=== PATIENT | female | born 1995 | race Caucasian/White ===

== ENCOUNTER → 2020-06-27 10:16 | Outpatient (CLI) | payer OTHER, SELFPAY ==
[2020-06-27 17:32] VITALS: BMI 27.1
== END ==
PROVIDERS: Referring Provider Physician Assistant; Visit Provider Physician Assistant
DX: Z20.828 Contact with and (suspected) exposure to other viral communicable diseases (principal)
CPT/HCPCS: 87635; U0003

== ENCOUNTER → 2022-05-03 | Outpatient (CLI) | payer OTHER, SELFPAY ==
[2022-05-03 19:36] LABS: Amphetamine Urine VISTA NEGATIVE (<1000 ng/mL); Barbiturate Urine VISTA NEGATIVE (< 200 ng/mL); Benzodiazepine Urine VISTA NEGATIVE (< 200 ng/mL); Cocaine Urine VISTA NEGATIVE (< 300 ng/mL); Ecstacy Urine VISTA NEGATIVE (< 500 ng/mL); Methadone Urine VISTA NEGATIVE (< 300 ng/mL); PCP Urine VISTA NEGATIVE (< 25 ng/mL); THC Urine VISTA NEGATIVE (< 50 ng/mL); Vista UDS pH Range 5
[2022-05-07 06:06] LABS: Chlamydia By Nucleic Acid AMP Negative (Negative)
[2022-05-07 14:32] LABS: Gonococcus By Nucleic Acid AMP Negative (Negative)
[2022-05-12 14:35] LABS: HPV Reflexed? NOT INDICATED
== END | disposition home or self-care (01) ==
LOC: LABSPEC 16:52
PROVIDERS: PCP Family Medicine; Visit Provider Obstetrics & Gynecology
DX: Z34.00 Encounter for supervision of normal first pregnancy, unspecified trimester (principal)
CPT/HCPCS: 80307; 87086; 87491; 87591; 88175; G0145

== ENCOUNTER → 2022-05-07 | Outpatient (CLI) | payer OTHER, SELFPAY ==
[2022-05-07 11:20] LABS: Absolute Lymphocyte Count 1.28 X10^3/uL (0.83-4.51); Absolute Neutrophil Count 5.9 X10^3/uL (2.0-7.7); Basophil# 0.02 X10^3/uL; Basophil% 0.3 % (0-1); Eosinophil# 0.05 X10^3/uL; Eosinophils% 0.6 % (0-5); Hematocrit 33.5 % (37-47); Hemoglobin 11.7 g/dL (12.0-15.0); Lymphocyte # 1.28 X10^3/ul (0.83-4.51); Lymphocyte % 16.5 % (19-41); Mean Corp Hgb Conc 34.9 g/dL (32-36); Mean Corpuscular Hgb 29.2 pg (27.0-32.0); Mean Corpuscular Volume 83.5 fL (81-99); Mean Platelet Vol. 10.4 fl (6.2-12.0); Monocyte# 0.52 X10^3/uL; Monocyte% 6.7 % (0-10); NRBC Flagged by Analyzer 0 % (0-5); Neutrophil # 5.86 X10^3/uL (2.7-7.7); Neutrophil % 75.5 % (47-70); Platelet Count 221 K/mm3 (150-450); RBC Distribution Width CV 11.7 % (11.6-14.6); RBC Distribution Width SD 35.5 fl (35.1-43.9); Red Blood Count 4.01 M/mm3 (4.2-5.4); White Blood Count 7.8 K/mm3 (4.4-11.0)
[2022-05-07 11:39] LABS: NATERA MAILED SPECIMEN
[2022-05-07 12:29] LABS: HIV - WCH Non-Reactive (Nonreactive); Hepatitis B Surface Antigen Non-Reactive (Nonreactive); Hepatitis C Antibody Non-Reactive (Nonreactive); Rubella IgG Reactive (Nonreactive); Syphilis Antibodies Non-reactive
== END | disposition home or self-care (01) ==
PROVIDERS: PCP Family Medicine; Referring Provider Obstetrics & Gynecology; Visit Provider Obstetrics & Gynecology
DX: Z34.81 Encounter for supervision of other normal pregnancy, first trimester (principal); Z31.430 Encounter of female for testing for genetic disease carrier status for procreative management
CPT/HCPCS: 85025; 86703; 86762; 86780; 86803; 86850; 86900; 86901; 87340

== ENCOUNTER → 2022-07-13 | Outpatient (CLI) | payer OTHER, SELFPAY ==
--- NOTE | 2022-07-13 13:31 | US_ITS ---
STUDY: SECOND AND THIRD TRIMESTER OBSTETRICAL ULTRASOUND REASON FOR EXAM: Female, 26 years old anatomy LMP: 03/01/2022. TECHNIQUE: Transabdominal and Transvaginal TECHNICAL QUALITY: Adequate. PRIOR ULTRASOUND: None. FINDINGS: There is a single intrauterine fetus. The fetus is in a breech presentation. There is demonstrated cardiac activity with a heart rate of 143 bpm. There is a normal amniotic fluid volume. The largest amniotic fluid pocket measures 4.8 cm x 3.3 cm. The amniotic fluid index (HADLEY) is within normal limits. The placenta is anterior in location and is not low lying. There are Grade 0 placental changes. The cervix measures 6 cm in length. The bilateral adnexal regions are normal. BIOMETRY: BPD: 4.06 cm: 18 weeks, 2 days HC: 15.94 cm: 18 weeks, 5 days AC: 14.14 cm: 19 weeks, 4 days FL: 2.9 cm: 18 weeks, 6 days CI: 71% FL/BPD: 72% FL/HC: FL/AC: 21% HC/AC: 1.13 age by current US: 18 weeks, 6 days. LUX by current US: 12/08/2021. Estimated weight: 276 grams, +/- 41 grams, 44 %. Age by LMP: 19 weeks, 1 days. LUX by LMP: 12/06/2022. ANATOMY: Gender: Cranium: Normal lateral ventricles. A choroid plexus cyst is seen measuring 5 mm x 6 mm x 5 mm. Normal cerebellum. Normal cisterna magna. Normal face, nose and lips. Chest: Normal 4-chamber heart. Abdomen/Pelvis: Normal diaphragm. Normal stomach. Normal abdominal wall. Normal cord insertion. Normal 3 vessel cord. Left renal pelvis fullness measuring 3 mm. Normal bladder. Spine: Normal cervical spine. Normal thoracic spine. Normal lumbar spine. Normal sacrum. Extremities: Normal bilateral upper extremities. Normal bilateral lower extremities. IMPRESSION: Single live intrauterine gestation with a mean gestational age of 18 weeks and 6 days. Small choroid plexus cyst. Fullness of the left renal pelvis measuring 3 mm. Electronically Signed: Figueroa Tay MD at 15:25 EST , STUDY: FIRST TRIMESTER OBSTETRICAL ULTRASOUND REASON FOR EXAM: Female, 26 years old . Cervical measurement. LMP: 03/01/2022 TECHNIQUE: Transvaginal TECHNICAL QUALITY: Adequate. PRIOR ULTRASOUND: None. FINDINGS: Cervical length measures 6 cm. US/OB Anatomy Scan IMPRESSION: Cervical length measures 6 cm. Electronically Signed: Figueroa Tay MD at 15:25 EST ,
== END | disposition home or self-care (01) ==
PROVIDERS: PCP Family Medicine; Visit Provider Obstetrics & Gynecology
DX: Z34.00 Encounter for supervision of normal first pregnancy, unspecified trimester (principal); Z3A.18 18 weeks gestation of pregnancy; R93.5 Abnormal findings on diagnostic imaging of other abdominal regions, including retroperitoneum
CPT/HCPCS: 76805; 76817

== ENCOUNTER → 2022-09-14 | Outpatient (CLI) | payer OTHER, SELFPAY ==
[2022-09-14 15:57] LABS: Absolute Lymphocyte Count 1.31 X10^3/uL (0.83-4.51); Absolute Neutrophil Count 8.3 X10^3/uL (2.0-7.7); Basophil# 0.02 X10^3/uL; Basophil% 0.2 % (0-1); Eosinophil# 0.11 X10^3/uL; Hematocrit 30.8 % (37-47); Hemoglobin 10.5 g/dL (12.0-15.0); Lymphocyte # 1.31 X10^3/ul (0.83-4.51); Lymphocyte % 12.4 % (19-41); Mean Corp Hgb Conc 34.1 g/dL (32-36); Mean Corpuscular Hgb 29.9 pg (27.0-32.0); Mean Corpuscular Volume 87.7 fL (81-99); Mean Platelet Vol. 9.8 fl (6.2-12.0); Monocyte# 0.78 X10^3/uL; Monocyte% 7.4 % (0-10); NRBC Flagged by Analyzer 0 % (0-5); Neutrophil # 8.33 X10^3/uL (2.7-7.7); Neutrophil % 78.5 % (47-70); Platelet Count 199 K/mm3 (150-450); RBC Distribution Width CV 12.6 % (11.6-14.6); Red Blood Count 3.51 M/mm3 (4.2-5.4); White Blood Count 10.6 K/mm3 (4.4-11.0)
[2022-09-14 16:14] LABS: Glucose Challenge Gest 1H 50g 113 mg/dL (70-140)
[2022-09-14 16:49] LABS: HIV - WCH Non-Reactive (Nonreactive); Syphilis Antibodies Non-reactive
== END | disposition home or self-care (01) ==
LOC: LAB 15:09
PROVIDERS: PCP Family Medicine; Referring Provider Obstetrics & Gynecology; Visit Provider Obstetrics & Gynecology
DX: Z34.90 Encounter for supervision of normal pregnancy, unspecified, unspecified trimester (principal)
CPT/HCPCS: 36415; 82950; 85025; 86703; 86780

== ENCOUNTER → 2022-10-10 | Outpatient (CLI) | payer OTHER, SELFPAY ==
[2022-10-10 15:38] LABS: Absolute Lymphocyte Count 1.58 X10^3/uL (0.83-4.51); Absolute Neutrophil Count 9.4 X10^3/uL (2.0-7.7); Basophil# 0.03 X10^3/uL; Basophil% 0.3 % (0-1); Eosinophil# 0.12 X10^3/uL; Hematocrit 31.6 % (37-47); Hemoglobin 10.8 g/dL (12.0-15.0); Lymphocyte # 1.58 X10^3/ul (0.83-4.51); Lymphocyte % 13.2 % (19-41); Mean Corp Hgb Conc 34.2 g/dL (32-36); Mean Corpuscular Hgb 30.6 pg (27.0-32.0); Mean Corpuscular Volume 89.5 fL (81-99); Mean Platelet Vol. 9.8 fl (6.2-12.0); Monocyte# 0.81 X10^3/uL; Monocyte% 6.8 % (0-10); NRBC Flagged by Analyzer 0 % (0-5); Neutrophil # 9.38 X10^3/uL (2.7-7.7); Neutrophil % 78.1 % (47-70); Platelet Count 204 K/mm3 (150-450); RBC Distribution Width CV 12.9 % (11.6-14.6); RBC Distribution Width SD 41.9 fl (35.1-43.9); Red Blood Count 3.53 M/mm3 (4.2-5.4)
== END | disposition home or self-care (01) ==
LOC: LAB 15:06
PROVIDERS: PCP Family Medicine; Visit Provider Obstetrics & Gynecology
DX: O99.013 Anemia complicating pregnancy, third trimester (principal); Z3A.00 Weeks of gestation of pregnancy not specified
CPT/HCPCS: 36415; 85025

== ENCOUNTER → 2022-10-11 | Outpatient (CLI) | payer OTHER, SELFPAY ==
--- NOTE | 2022-10-11 14:17 | US_ITS ---
STUDY: SECOND AND THIRD TRIMESTER OBSTETRICAL ULTRASOUND - LIMITED REASON FOR EXAM: Female, 27 years old routine survey, growth check LMP: 03/01/2022 PRIOR ULTRASOUND: 07/13/2022 TECHNIQUE: Transabdominal TECHNICAL QUALITY: Adequate. FINDINGS: There is a single intrauterine fetus. The fetus is in a cephalic presentation. There is demonstrated cardiac activity with a heart rate of 137 bpm. There is a normal amniotic fluid volume. The largest amniotic fluid pocket measures 5.3 cm. The amniotic fluid index (HADLEY) is 15.5 cm. The placenta is anterior in location and is not low lying. There are Grade 2 placental changes. The cervix measures 3.2 cm in length. BIOMETRY: BPD: 8.1 cm: 32 weeks, 5 days HC: 29.6 cm: 32 weeks, 5 days AC: 27.5 cm: 31 weeks, 4 days FL: 6.3 cm: 32 weeks, 3 days age by prior US: 18 weeks, 6 days. LUX by prior US: 12/08/2021. age by current US: 32 weeks, 1 days. LUX by current US: 12/05/2022. Estimated weight: 1911 grams, +/- 287 grams, 44 percentile. Parts Salvager notes a nuchal cord, a previously noted choroid plexus cyst is no longer identified. Fullness of the left renal pelvis also no longer identified. US/OB Limited With Biometrics IMPRESSION: Single live intrauterine at 32 weeks, 1 day by current ultrasound with LUX of 12/05/2022. Heart rate at 137 bpm. Normal growth is noted since the previous study. A nuchal cord is present. Previously noted choroid plexus cyst, and left renal pelvis fullness no longer identified. Electronically Signed: Valdez Rosales MD at 8:01 EDT ,
== END | disposition home or self-care (01) ==
LOC: US 14:15
PROVIDERS: PCP Family Medicine; Visit Provider Obstetrics & Gynecology
DX: U07.1 COVID-19 (principal)
CPT/HCPCS: 76816

== ENCOUNTER → 2022-11-09 | Outpatient (CLI) | payer OTHER, SELFPAY ==
--- NOTE | 2022-11-09 15:29 | US_ITS ---
STUDY: SECOND AND THIRD TRIMESTER OBSTETRICAL ULTRASOUND - LIMITED REASON FOR EXAM: Female, 27 years old growth -- 36 Weeks LMP: PRIOR ULTRASOUND: None. TECHNIQUE: Transabdominal TECHNICAL QUALITY: Adequate. FINDINGS: There is a single intrauterine fetus. The fetus is in a cephalic presentation. There is demonstrated cardiac activity with a heart rate of 137 bpm. There is a normal amniotic fluid volume. The largest amniotic fluid pocket measures 5.39 cm. The amniotic fluid index (HADLEY) is 16.9 cm. The placenta is anterior There are Grade 0 placental changes. The cervix measures cm in length. BIOMETRY: BPD: 8.6 cm: 34 weeks, 6 days HC: 32.84 cm: 37 weeks, 2 days AC: 30.94 cm: 34 weeks, 6 days FL: 6.83 cm: 35 weeks, 0 days Age by LMP: 36 weeks, 2 days. LUX by LMP: December 05, 2022. age by current US: 35 weeks, 4 days. LUX by current US: December 10, 2022. Estimated weight: 2578 grams, +/- grams, 21.8 percentile. US/OB Limited With Biometrics IMPRESSION: Viable intrauterine gestation approximately 35-36 weeks gestational age No significant abnormalities Electronically Signed: Bishop Yip MD at 17:11 EDT ,
== END | disposition home or self-care (01) ==
LOC: US 15:29
PROVIDERS: PCP Family Medicine; Referring Provider Obstetrics & Gynecology; Visit Provider Obstetrics & Gynecology
DX: O98.513 Other viral diseases complicating pregnancy, third trimester (principal); U07.1 COVID-19; Z3A.36 36 weeks gestation of pregnancy
CPT/HCPCS: 76816

== ENCOUNTER → 2022-11-13 | Outpatient (CLI) | payer OTHER, SELFPAY | END | disposition home or self-care (01) | LOC: LABSPEC 17:00 | PROVIDERS: PCP Family Medicine; Referring Provider Obstetrics & Gynecology; Visit Provider Obstetrics & Gynecology | DX: Z34.00 Encounter for supervision of normal first pregnancy, unspecified trimester (principal) | CPT/HCPCS: 87081 ==

== ENCOUNTER 2022-12-02 23:58 | Inpatient (IN) | payer OTHER, SELFPAY ==
[2022-12-02 23:17] VITALS: BMI 39.2
[2022-12-02 23:22] VITALS: BP 143/82; PULSE 91; PULSE 95; TEMP 37.2; O2SAT 97
[2022-12-02 23:56] LABS: ROM Internal Control Test YES-OK TO RESULT pt. (Internal QC)
[2022-12-02 23:58] LABS: ROM Patient Test POSITIVE (Negative)
[2022-12-03] VITALS (60 sets, daily range): BP systolic 105–134; BP diastolic 55–80; PULSE 74–210; TEMP 36.2–37.6; O2SAT 97–100
[2022-12-03 00:42] LABS: Absolute Lymphocyte Count 1.74 X10^3/uL (0.83-4.51); Absolute Neutrophil Count 8.4 X10^3/uL (2.0-7.7); Basophil# 0.04 X10^3/uL; Basophil% 0.4 % (0-1); Eosinophils% 0.9 % (0-5); Hematocrit 33.4 % (37-47); Hemoglobin 11.4 g/dL (12.0-15.0); Lymphocyte # 1.74 X10^3/ul (0.83-4.51); Lymphocyte % 15.5 % (19-41); Mean Corp Hgb Conc 34.1 g/dL (32-36); Mean Corpuscular Hgb 29.5 pg (27.0-32.0); Mean Corpuscular Volume 86.5 fL (81-99); Mean Platelet Vol. 10.9 fl (6.2-12.0); Monocyte# 0.85 X10^3/uL; Monocyte% 7.6 % (0-10); NRBC Flagged by Analyzer 0 % (0-5); Platelet Count 209 K/mm3 (150-450); RBC Distribution Width CV 13.1 % (11.6-14.6); Red Blood Count 3.86 M/mm3 (4.2-5.4); White Blood Count 11.2 K/mm3 (4.4-11.0)
[2022-12-03 01:43] LABS: Syphilis Antibodies Non-reactive
[2022-12-03] MEDS: LACTATED RINGERS 500 ML 999 ML IV (04:07)
[2022-12-03] MEDS: Lactated Ringers 1,000 ML 200 ML IV ×4 (04:39→21:19)
[2022-12-03] MEDS: fentaNYL-bupivacaine (epidural) 100 ML BAG EPIDURAL ×4 (05:11→19:09)
--- NOTE | 2022-12-03 08:45 | HP.PCM.OB_ITS ---
HPI - General General Date of Admission: 12/02/22 HPI Narrative AASHISH NORMAN, is a 27 F who presents at 39+4 with LOF at 10pm on 12/02/2022. positive ROM. good fm. no vb. increasing ctx strength and frequency. course complicated by Covid. growth scans stable. 2578g(21.8%) at 36 weeks. Maternal Data Information LUX Calculator Estimated Delivery Date Method Current WG Current Estimate 12/06/22 LMP (Certain) 39w 4d Other Estimates 12/04/22 Ultrasound #1 39w 6d PFSH PFS Medical History Lab test positive for detection of COVID-19 virus Home Medications multivitamin no.47-iron fum 27 mg-folate no.1 1 mg-dha 300 mg capsule (PNV-DHA) 1 cap PO DAILY 04/27/22 [History Last Taken 11/30/22] aspirin 81 mg chewable tablet 81 mg PO DAILY covid in 06/27/22 [History Last Taken 12/01/22] ferrous sulfate 325 mg (65 mg iron) tablet (Iron (ferrous sulfate)) 325 mg PO DAILY anemia 12/02/22 [History Last Taken 11/30/22] Allergy/AdvReac Type Severity Reaction Status Date / Time No Known Allergies Allergy Verified 11/28/22 16:19 Social History adopted: No household members: significant other current occupational status: employed 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 [employer] current occupational exposures/hazards: No pets and animals: Yes pets and animals: dog(s) history of recent travel: No sexually active: Yes Smoking Status: Never smoker alcohol intake: never substance use type: does not use well-balanced diet: about half the time caffeine: No eating out: 1-3 times/week during the past year weight has: remained stable what type of physical activity do you participate in: none kathleen/jewish: None seatbelt use: always do you feel safe at home: Yes additional social history: Boyfriend- [employer] History 1 Elective abortions Hx Para 0 Spontaneous abortions Hx # Term Pregnancies Ectopic pregnancies Hx # Pregnancies Multiple births # of living children Visit Details Expected Delivery Route/Plan Labor Preferences- CB/BF classes: obtaining labor support person: Nba labor intervention preferences: pain management options preferred: epidural cut cord/dad catch: [] : wants PP control planned: [] discussed possible routes of delivery and associated risks: [] special requests: [] Plans Covid status: discussed. Flu vaccine: discussed Tdap vaccine: obtained Rhogam: [] LARC form signed: completed movement and labor precautions reviewed. Problem list reviewed and updated with the most current plan of care details and appropriate orders placed. Relevant counseling for the gestational age provided. Continue routine care and follow up unless otherwise noted in visit notes/problem list details OB Flowsheet Initial Weight: Not Recorded Date -?-?-?-?-?-?-?-?-?-?-?-?- EGA Weight BP Urine Prot -?-?-?-?-?-?-?-?-?-?-?-?- Glucose FHR FuHt Pres Dilation -?-?-?-?-?-?-?-?-?-?-?-?- Effaced St Visit Note 05/03/22 -?-?-?-?-?-?-?-?-?-?-?-?- 9w 0d 173 lb 2 oz 112/76 -?-?-?-?-?-?-?-?-?-?-?-?- 179 -?-?-?-?-?-?-?-?-?-?-?-?- JV- CRL is consi stent with LMP. 05/30/22 -?-?-?-?-?-?-?-?-?-?-?-?- 12w 6d 170 lb 119/79 Negative -?-?-?-?-?-?-?-?-?-?-?-?- Negative 159 -?-?-?-?-?-?-?-?-?-?-?-?- JV- still having lots of morning sickness. will try phenergan. zofran not working. JV- still having lots of mor kenisha sickness. will try phenergan. zofran not working. Pt also noted at end of her visit today that her fiancee is home sick with COVID and did not wear a mask to the office. She also has with her 2 other family members who have also been exposed to COVID. 06/27/22 -?-?-?-?-?-?-?-?-?-?-?-?- 16w 6d 172 lb 2 oz 115/77 Nega tive -?-?-?-?-?-?-?-?-?-?-?-?- Negative 145 -?-?-?-?-?-?-?-?-?-?-?-?- LC- nausea is im proving with medications. anatomy scan ordered. on ASA for covid. 07/19/22 -?-?-?-?-?-?-?-?-?-?-?-?- 20w 0d 178 lb 2 oz 110/68 Nega tive -?-?-?-?-?-?-?-?-?-?-?-?- Negative 148 -?-?-?-?-?-?-?-?-?-?-?-?- MH-No VB. Revie wed anatomy us-noted choroid plexus cyst, otherwise normal US. LR NIPT. Reasured. Flu vaccine given 08/17/22 -?-?-?-?-?-?-?-?-?-?-?-?- 24w 1d 189 lb 117/83 Negative -?-?-?-?-?-?-?-?-?-?-?-?- Negative 140 24 -?-?-?-?-?-?-?-?-?-?-?-?- SM- no vb jeffery medrano discussed anatomy further 09/14/22 -?-?-?-?-?-?-?-?-?-?-?-?- 28w 1d 195 lb 2 oz 104/71 Nega tive -?-?-?-?-?-?-?-?-?-?-?-?- Negative 150 27 -?-?-?-?-?-?-?-?-?-?-?--?- SM- no vb lof go od fm no regular ctx 10/10/22 -?-?-?-?-?-?-?-?-?-?-?-?- 31w 6d 206 lb 4 oz 106/69 Nega tive -?-?-?-?-?-?-?-?-?-?-?-?- Negative 156 31 -?-?-?-?-?-?-?-?-?-?-?-?- JV- JV- no lof, vaginal bleeding , or dec fm. tdap and larc today. rpt cbc today shows hg 10.8 (up slightly) continue iron 10/22/22 -?-?-?-?-?-?-?-?-?-?-?-?- 33w 4d 210 lb 2 oz 112/74 112/74 Negative -?-?-?-?-?-?-?-?-?-?-?-?- Negative 154 33 -?-?-?-?-?-?-?-?-?-?-?-?- LC- no vb/lof/ct x. good fm. normal growth. 11/06/22 -?-?-?-?-?-?-?-?-?-?-?-?- 35w 5d 211 lb 4 oz 121/84 Nega tive -?-?-?-?-?-?-?-?-?-?-?-?- Negative 150 36 -?-?-?-?-?-?-?-?-?-?-?-?- KW- no vb/lof/ct x. + FM GBS next visit. no concerns KW- no vb/lof/ctx. + FM GBS next visit. 36 week US scheduled for 11/09. no concerns 11/13/22 -?-?-?-?-?-?-?-?-?-?-?-?- 36w 5d 215 lb 8 oz 129/86 Nega tive -?-?-?-?-?-?-?-?-?-?-?-?- Negative 150 37 -?-?-?-?-?-?--?-?-?-?-?-?- SM- no vb lof go od fm no regular ctx gbs today 11/20/22 -?-?-?-?-?-?-?-?-?-?-?-?- 37w 5d 220 lb 114/79 Negative -?-?-?-?-?-?-?-?-?-?-?-?- Negative 140 38 Cephalic 2 -?-?-?-?-?-?-?-?-?-?-?-?- 50 -3 KW-+FM, no lof/vb. ctx noted-not able to time. no concerns 11/28/22 -?-?-?-?-?-?-?-?-?-?-?--?- 38w 6d 221 lb 4 oz 130/78 Nega tive -?-?-?-?-?-?-?-?-?-?-?-?- Negative 145 39 Cephalic 1 -?-?-?-?-?-?-?-?-?-?-?-?- 30 -3 JV- no lof , vaginal bleeding, or dec fm. labor precautions reviewed. NST FHR Rate Baby A Baseline: 140 Variability:: Moderate Accelerations:: 15 x 15 Decelerations:: None NST Reactive:: Yes FHR Category:: Category I Uterine Activity:: q2-7 minutes ROS Cardiovascular Cardiovascular: Denies abdominal pain, chest pain, diaphoresis or dyspnea Respiratory/Chest Respiratory/Chest: Denies change in mental status, chest congestion, chest tightness, cough, shortness of breath at rest, shortness of breath with exertion, breast mass, breast pain, breast skin changes, breast swelling, change in breast shape or nipple discharge Genitourinary Genitourinary: Reports change in urinary stream Musculoskeletal Musculoskeletal: Reports none Integumentary Integumentary: Reports none Neurologic Neurologic: Reports none Psychiatric Psychiatric: Reports none Endocrine Endocrinology: Reports none Hematologic/Lymphatic Hematologic/Lymphatic: Reports none Allergic/Immunologic Allergic/Immunologic: Reports none Vital Signs Vital Signs Vital Signs: 12/02/22 23:22 12/02/22 23:22 12/02/22 23:22 Temperature Temperature Source Pulse Rate 91 95 Blood Pressure 143/82 H BP Systolic 143 BP Diastolic 82 Pulse Ox 12/02/22 23:22 12/02/22 23:22 12/03/22 00:10 Temperature 99.0 F Temperature Source Pulse Rate Blood Pressure 129/75 H BP Systolic 129 BP Diastolic 75 Pulse Ox 97 12/03/22 00:10 12/03/22 02:58 12/03/22 02:58 Temperature Temperature Source Pulse Rate 81 76 Blood Pressure BP Systolic BP Diastolic Pulse Ox 98 12/03/22 03:04 12/03/22 03:04 12/03/22 00:10 Temperature Temperature Source Temporal Pulse Rate 80 Blood Pressure BP Systolic BP Diastolic Pulse Ox 99 12/03/22 03:09 12/03/22 03:09 12/03/22 00:10 Temperature 98.0 F Temperature Source Pulse Rate 88 Blood Pressure BP Systolic BP Diastolic Pulse Ox 97 12/03/22 01:01 12/03/22 01:01 12/03/22 02:59 Temperature 98.2 F Temperature Source Temporal Temporal Pulse Rate Blood Pressure BP Systolic BP Diastolic Pulse Ox 12/03/22 03:14 12/03/22 03:14 12/03/22 03:19 Temperature Temperature Source Pulse Rate 88 83 Blood Pressure BP Systolic BP Diastolic Pulse Ox 100 12/03/22 03:19 12/03/22 03:24 12/03/22 03:24 Temperature Temperature Source Pulse Rate 82 Blood Pressure BP Systolic BP Diastolic Pulse Ox 100 98 12/03/22 03:29 12/03/22 03:29 12/03/22 03:32 Temperature Temperature Source Pulse Rate 89 Blood Pressure 125/75 H BP Systolic 125 BP Diastolic 75 Pulse Ox 100 12/03/22 03:32 12/03/22 03:33 12/03/22 03:32 Temperature 97.2 F L Temperature Source Temporal Pulse Rate 95 Blood Pressure BP Systolic BP Diastolic Pulse Ox 12/03/22 03:32 12/03/22 04:24 12/03/22 04:24 Temperature 97.1 F L 98.4 F Temperature Source Pulse Rate Blood Pressure 122/66 H BP Systolic 122 BP Diastolic 66 Pulse Ox 12/03/22 04:24 12/03/22 04:24 12/03/22 04:24 Temperature Temperature Source Temporal Pulse Rate 74 Blood Pressure BP Systolic BP Diastolic Pulse Ox 97 12/03/22 04:58 12/03/22 04:58 12/03/22 05:03 Temperature Temperature Source Pulse Rate 88 Blood Pressure 118/80 BP Systolic 118 BP Diastolic 80 Pulse Ox 98 12/03/22 05:03 12/03/22 05:03 12/03/22 05:03 Temperature Temperature Source Pulse Rate 90 88 Blood Pressure BP Systolic BP Diastolic Pulse Ox 99 12/03/22 05:07 12/03/22 05:07 12/03/22 05:08 Temperature Temperature Source Pulse Rate 80 82 Blood Pressure 117/64 BP Systolic 117 BP Diastolic 64 Pulse Ox 12/03/22 05:08 12/03/22 05:12 12/03/22 05:12 Temperature Temperature Source Pulse Rate 83 Blood Pressure 108/55 L BP Systolic 108 BP Diastolic 55 Pulse Ox 98 12/03/22 05:13 12/03/22 05:13 12/03/22 05:16 Temperature Temperature Source Pulse Rate 85 Blood Pressure 105/56 L BP Systolic 105 BP Diastolic 56 Pulse Ox 99 12/03/22 05:16 12/03/22 05:18 12/03/22 05:18 Temperature Temperature Source Pulse Rate 81 97 Blood Pressure BP Systolic BP Diastolic Pulse Ox 100 12/03/22 05:22 12/03/22 05:22 12/03/22 05:23 Temperature Temperature Source Pulse Rate 210 H 82 Blood Pressure 106/61 BP Systolic 106 BP Diastolic 61 Pulse Ox 12/03/22 05:23 12/03/22 05:27 12/03/22 05:27 Temperature Temperature Source Pulse Rate 85 Blood Pressure 112/57 L BP Systolic 112 BP Diastolic 57 Pulse Ox 100 12/03/22 05:28 12/03/22 05:28 12/03/22 05:31 Temperature Temperature Source Pulse Rate 74 Blood Pressure 112/56 L BP Systolic 112 BP Diastolic 56 Pulse Ox 100 12/03/22 05:31 12/03/22 05:33 12/03/22 05:33 Temperature Temperature Source Pulse Rate 78 80 Blood Pressure BP Systolic BP Diastolic Pulse Ox 99 12/03/22 05:36 12/03/22 05:36 12/03/22 05:38 Temperature Temperature Source Pulse Rate 85 77 Blood Pressure 115/56 L BP Systolic 115 BP Diastolic 56 Pulse Ox 12/03/22 05:38 12/03/22 05:41 12/03/22 05:41 Temperature Temperature Source Pulse Rate 78 Blood Pressure 115/57 L BP Systolic 115 BP Diastolic 57 Pulse Ox 99 12/03/22 05:43 12/03/22 05:43 12/03/22 05:41 Temperature Temperature Source Temporal Pulse Rate 79 Blood Pressure BP Systolic BP Diastolic Pulse Ox 99 12/03/22 05:41 12/03/22 06:21 12/03/22 06:21 Temperature 98.3 F 98.6 F Temperature Source Pulse Rate Blood Pressure 115/59 L BP Systolic 115 BP Diastolic 59 Pulse Ox 12/03/22 06:21 12/03/22 06:21 12/03/22 07:20 Temperature Temperature Source Pulse Rate 95 Blood Pressure 116/56 L BP Systolic 116 BP Diastolic 56 Pulse Ox 98 12/03/22 07:20 12/03/22 07:20 12/03/22 08:36 Temperature 98.2 F 99.1 F Temperature Source Pulse Rate 99 Blood Pressure BP Systolic BP Diastolic Pulse Ox 12/03/22 08:36 12/03/22 08:36 Temperature Temperature Source Pulse Rate 88 Blood Pressure 107/59 L BP Systolic 107 BP Diastolic 59 Pulse Ox Weight Weight: 221 lb 12.56 oz Body Mass Index (BMI) 39.2 Physical Exam Const alert, oriented x3 and no apparent distress General Appearance: cooperative, comfortable and well kempt Orientation / Consciousness: awake and oriented to person Exam Limitations: no limitations HEENT normocephalic Neck full ROM Chest inspection of chest normal Resp normal respiratory effort, normal air movement and no retractions Effort and Inspection: able to speak in complete sentences and symmetric chest movement Cardio regular rate Peripheral Pulses: pulses 2+ throughout GI normal to inspection, nondistended, normoactive bowel sounds Inspection: gravid no CVA tenderness and appearance of the vagina normal External Female Exam: normal appearance of the urethra; Negative for external lesion OB / External & Speculum: external exam normal Manual OB Exam: estimated gestational size appropriate, presentation cephalic, dilated 5.5, effaced 95 and station -1 Uterus Palpation: Negative for uterus tender Extremity normal to inspection Skin no rashes or lesions noted Neuro deep tendon reflexes 2+ bilaterally and gait normal Motor Exam: strength 5/5 throughout and clonus absent Psych Activity / Motor Behavior: appropriate eye contact Speech: normal speech Labs Labs Labs: Blood Type A POSITIVE Antibody Screen NEGATIVE Hct 33.4 % (37-47) L Hgb 11.4 g/dL (12.0-15.0) L Obstetrics US Syphilis Total Ab Non-reactive Rubella IgG Antibody Reactive (Nonreactive) Hep Bs Antigen Non-Reactive (Nonreactive) Chlamydia DNA (SULLY) Negative (Negative) Neisseria gonorrhoeae DNA (SULLY) Negative (Negative) HIV 1&2 Antibody Non-Reactive (Nonreactive) Glucose 1 Hr 50 gm 113 mg/dL (70-140) Assessment & Plan (1) SROM (spontaneous rupture of membranes): (2) Supervision of normal first : COMMENT: PRR , LUX 12/06/22, girl Boyfriend Nba (3) : QUALIFIERS: Weeks of gestation: 38 weeks Qualified Code(s): Z3A.38 - 38 weeks gestation of COMMENT: GBS neg., NIPT low risk, carrier neg. 274/274. nl anatomy PLAN: Plan Patient presents IAL, plan expectant management for , pitocin PRN if needed. making cervical change not on pitocin. Pain management: comfortable with epidural GBS negative. Management of any complications: none I have reviewed the [facility] and made any clinically relevant updates. updated on admission, poc and exam. agrees with primary midwifery management, low risk.
[2022-12-03] MEDS: Ondansetron 4 MG/2 ML Vial IV (20:10)
[2022-12-03] MEDS: Oxytocin 15 Units/NS 250ml 15 UNITS/250 ML IV.SOLN 2 UNITS IV (20:52)
[2022-12-03] MEDS: Methylergonovine 0.2 MG/ML Ampul IM (22:34)
--- NOTE | 2022-12-03 22:41 | EX.PCM.OBRPT ---
Assessment & Plan (1) (spontaneous vaginal delivery): COMMENT: SROM, IAL, . Elise. FONTANA Maternal Data Information LUX Calculator Estimated Delivery Date Method Current WG Current Estimate 12/06/22 LMP (Certain) 39w 4d Other Estimates 12/04/22 Ultrasound #1 39w 6d Vaginal Delivery Maternal Presentation Maternal Presentation: Spontaneous Rupture of Membranes Operative Information Date of Procedure: 12/03/22 Pre-Operative Diagnosis: Post-Operative Diagnosis: Surgery / Procedure Performed: Spontaneous Vaginal Delivery Type of Anesthesia: Epidural Estimated Blood Loss: 300 Time of Delivery: 22:14 Findings Description of Procedure: Patient began pushing and delivered the head in the SHANDRA presentation. The head was delivered atraumatically . The anterior and posterior shoulders delivered without complication followed by the rest of the infant and the infant was placed on the maternal abdomen. Delayed cord clamping was employed for approximately 60 seconds. Cord was clamped and cut and gentle traction was applied to the cord and the placenta delivered spontaneously immediately following it was noted to be intact with three-vessel cord. The perineum and vagina were inspected and noted to have 1st degree laceration, repaired with 3-0 vicryl.. EBL was 300cc, had brisk bleeding despite pitocin rate increased. methergine 0.2mg IMx1 given with good effect, fundus firm, hemostatus achieved. Patient and tolerated delivery well entered recovery phase bonding skin to skin. Presentation: Vertex Amniotic Membrane Rupture Type: Spontaneous Time of Membrane Rupture: 2200 Amniotic Fluid Description: Clear Placental Delivery Description: Spontaneous Placenta Disposition: [facility] Cord Vessel Description: 3 Vessels Cord Entanglement: None Nuchal Cord Compression: Without compression Infant A Gender: Female (1 minute): 8 (5 minute): 9 Delayed Cord Clamping: Yes Post Vaginal Delivery Medications Given After Delivery: IV Pitocin and IM Methergin Episiotomy Description: None Laceration: 1st degree Addendum Addendum: CNM delivery
--- NOTE | 2022-12-03 22:50 | DCINST_ITS ---
Discharge Instructions Diet Discharge Diet: No restrictions Activity Discharge Activity: May Not Drive and May Shower May resume sexual activity in: 6 weeks Weight Bearing Status: Full weight bearing Dressing / Incision Call your doctor if your incision/area has: Sudden Increased Bleeding, Increased Pain/ Swelling and Foul Smelling Discharge Call your doctor if you observe: Fever of 101 or Higher, Numbness or Tingling, Change in Color, Inability to urinate, Inability to have a bowel movement, Using more than 1 pad per hour, Shortness of breath, Dizziness, Fainting spells, Chest pain, Calf discomfort and Uncontrolled pain Follow Up Care Please Follow Up With: Pallavi Del Valle CNM When: 6 weeks , please call office to make an appointment. Congratulations on the of your baby girl!! Test Results: Test results from this visit will be discussed in further detail at your follow- up appointment, if applicable. Discharge Plan Admission Admit Date/Time: 12/02/22 23:58 Attending Provider: Pallavi Del Valle Primary Care Provider: Benton Angeles Discharge Orders/Prescriptions Prescriptions: No Action PNV-DHA 27 mg iron-1 mg -300 mg capsule 1 cap PO DAILY aspirin 81 mg tablet,chewable 81 mg PO DAILY ferrous sulfate [Iron (ferrous sulfate)] 325 mg (65 mg iron) Tablet 325 mg PO DAILY Referrals / Follow Up: Benton Angeles MD [Primary Care Provider] - Disposition Disposition (needs filled in before D/C Order can be placed): Home, Self Care
[2022-12-03] MEDS: Oxytocin 15 Units/NS 250ml 15 UNITS/250 ML IV.SOLN 83 UNITS IV (23:00)
[2022-12-04] VITALS (10 sets, daily range): BP systolic 108–136; BP diastolic 64–75; PULSE 87–106; RESP 16–18; TEMP 36.2–36.5
[2022-12-04] MEDS: Acetaminophen 650 MG/20 ML UDC PO ×2 (05:10→11:18)
--- NOTE | 2022-12-04 07:24 | PCM.PN.OB ---
Subjective Subjective Patient doing well without complaints. Tolerating PO. Ambulating and voiding without difficulty. Feeding well. Denies chest pain, shortness of breath, calf pain/swelling, fevers, chills, lightheadedness. Objective Data Objective Data Vital Signs: Vital Signs Temp Pulse Resp BP Pulse Ox O2 Del Method 99.7 F H 102 H 18 115/73 98 Room Air 12/03/22 23:21 12/04/22 04:45 12/04/22 04:45 12/04/22 04:45 12/03/22 16:28 12/04/22 04:45 Oxygen Delivery Method Room Air Weight: 221 lb 12.56 oz Body Mass Index (BMI) 39.2 Intake & Output: Intake and Output for Last 24 Hours 12/02/22 12/03/22 12/04/22 23:59 23:59 23:59 Intake Total 4454.57 / 4454.57 250 / 250 Output Total 1200 / 1200 400 / 400 Balance 3254.57 / 3254.57 -150 / -150 Lab / Micro Data Attestation: I reviewed the patient's lab results. Result Diagrams: 12/03/22 00:05 ROS Constitutional Constitutional: Reports systems reviewed and no addt'l complaints, except as documented; Denies anorexia or headache(s) Cardiovascular Cardiovascular: Reports systems reviewed and no addt'l complaints, except as documented; Denies dizziness, dyspnea, nausea or tachypnea Respiratory/Chest Respiratory/Chest: Reports systems reviewed and no addt'l complaints, except as documented; Denies cough, dyspnea, shortness of breath at rest or tachypnea Gastrointestinal Gastrointestinal: Reports systems reviewed and no addt'l complaints, except as documented; Denies abdominal pain, constipation or nausea Genitourinary Genitourinary: Reports systems reviewed and no addt'l complaints, except as documented; Denies burning urination, difficulty urinating, dysuria, urinary frequency or urinary incontinence Musculoskeletal Musculoskeletal: Reports systems reviewed and no addt'l complaints, except as documented Integumentary Integumentary: Reports systems reviewed and no addt'l complaints, except as documented Neurologic Neurologic: Reports systems reviewed and no addt'l complaints, except as documented; Denies abnormal speech, dizziness or headache(s) Psychiatric Psychiatric: Reports systems reviewed and no addt'l complaints, except as documented Endocrine Endocrinology: Reports systems reviewed and no addt'l complaints, except as documented Hematologic/Lymphatic Hematologic/Lymphatic: Reports systems reviewed and no addt'l complaints, except as documented Physical Exam Const alert, oriented x3 and no apparent distress Neck full ROM Chest inspection of chest normal and inspection of breasts normal Nipple/Areola: nipples/areola normal Resp normal respiratory effort, normal air movement and no retractions Effort and Inspection: able to speak in complete sentences and symmetric chest movement GI soft to palpation Bladder / Kidney Exam: bladder normal to palpation Uterus Palpation: uterus fundus firm Extremity normal to inspection and full ROM Psych mental status grossly normal, thought process normal and cooperative Assessment & Plan (1) (spontaneous vaginal delivery): COMMENT: SROM, IAL, . Elise. FONTANA PLAN: s/p PPD # 1 1. routine post delivery care 2. breast feeding- support given 3. rh positive 4. rubella immune (2) Lab test positive for detection of COVID-19 virus: COMMENT: 81mg asa and 32 & 36 wk growth us, 11/12 nl growth, nl yuliana (3) Supervision of normal first : COMMENT: PRR , LUX 12/06/22, girl Boyfriend Nba (4) : QUALIFIERS: Weeks of gestation: 38 weeks Qualified Code(s): Z3A.38 - 38 weeks gestation of COMMENT: GBS neg., NIPT low risk, carrier neg. 274/274. nl anatomy Charges/Coding Multi Select Codes Urinary/Genital Urinary/Genital CPT Codes: No Charge
[2022-12-04] MEDS: Ibuprofen 100 MG/5 ML UDC 600 MG PO (16:43)
[2022-12-05] MEDS: Acetaminophen 650 MG/20 ML UDC PO (01:27)
[2022-12-05 02:34] VITALS: BP 118/65; PULSE 84; RESP 18
--- NOTE | 2022-12-05 08:04 | PCM.PN.OB ---
Subjective Subjective Patient doing well without complaints. Tolerating PO. Ambulating and voiding without difficulty. Feeding well. Denies chest pain, shortness of breath, calf pain/swelling, fevers, chills, lightheadedness. Objective Data Objective Data Vital Signs: Vital Signs Temp Pulse Resp BP Pulse Ox O2 Del Method 97.7 F L 84 18 118/65 98 Room Air 12/04/22 20:56 12/05/22 02:34 12/05/22 02:34 12/05/22 02:34 12/03/22 16:28 12/05/22 02:34 Oxygen Delivery Method Room Air Weight: 221 lb 12.56 oz Body Mass Index (BMI) 39.2 Intake & Output: Intake and Output for Last 24 Hours 12/03/22 12/04/22 12/05/22 23:59 23:59 23:59 Intake Total 4454.57 / 4454.57 250 / 250 Output Total 1200 / 1200 850 / 850 Balance 3254.57 / 3254.57 -600 / -600 Lab / Micro Data Result Diagrams: 12/03/22 00:05 Physical Exam Const alert and oriented x3 HEENT normocephalic Eyes PERRL Neck full ROM Resp normal respiratory effort GI soft to palpation GI Narrative: FF below U Assessment & Plan (1) (spontaneous vaginal delivery): COMMENT: JACKSON LION SVD. Elsie. PLAN: Plan s/p PPD # 2 1. routine post delivery care 2. breast feeding- support given 3. rh positive 4. rubella immune 5.home today
[2022-12-05 08:14] VITALS: BP 109/68; PULSE 80; RESP 17; TEMP 36.5
[2022-12-05] MEDS: Ibuprofen 100 MG/5 ML UDC 600 MG PO (08:17)
== END 2022-12-05 11:25 | disposition home or self-care (01) | DRG 807 ==
LOC: WPOUT 12-03 → WP 12-03
PROVIDERS: Obstetrics & Gynecology; Admitting Provider Registered Nurse; PCP Family Medicine; Visit Provider Registered Nurse
DX: O70.0 First degree perineal laceration during delivery (principal); Z37.0 Single live birth; O69.2XX0 Labor and delivery complicated by other cord entanglement, with compression, not applicable or unspecified; Z79.82 Long term (current) use of aspirin; Z86.16 Personal history of COVID-19; Z3A.38 38 weeks gestation of pregnancy
CPT/HCPCS: 59025; 59050; 84112; 85025; 86780; 86850; 86900; 86901; 99221; J7120; G0378; J2405

== ENCOUNTER → 2024-04-09 | Outpatient (CLI) | payer OTHER, SELFPAY ==
[2024-04-13 03:13] LABS: Chlamydia By Nucleic Acid AMP Negative (Negative); Gonococcus By Nucleic Acid AMP Negative (Negative)
== END | disposition home or self-care (01) ==
PROVIDERS: PCP Family Medicine; Referring Provider Advanced Practice Midwife; Visit Provider Advanced Practice Midwife
DX: O99.210 Obesity complicating pregnancy, unspecified trimester (principal)
CPT/HCPCS: 87086; 87088; 87491; 87591

== ENCOUNTER → 2024-04-17 | Outpatient (CLI) | payer OTHER, SELFPAY ==
[2024-04-17 11:34] LABS: Absolute Lymphocyte Count 1.41 X10^3/uL (0.83-4.51); Absolute Neutrophil Count 4.7 X10^3/uL (2.0-7.7); Basophil# 0.03 X10^3/uL; Basophil% 0.5 % (0-1); Eosinophil# 0.08 X10^3/uL; Eosinophils% 1.2 % (0-5); Hematocrit 36.4 % (37-47); Hemoglobin 12.6 g/dL (12.0-15.0); Lymphocyte # 1.41 X10^3/ul (0.83-4.51); Lymphocyte % 21.6 % (19-41); Mean Corp Hgb Conc 34.6 g/dL (32-36); Mean Corpuscular Hgb 29.1 pg (27.0-32.0); Mean Corpuscular Volume 84.1 fL (81-99); Mean Platelet Vol. 10.2 fl (6.2-12.0); Monocyte# 0.31 X10^3/uL; Monocyte% 4.8 % (0-10); NRBC Flagged by Analyzer 0 % (0-5); Neutrophil # 4.67 X10^3/uL (2.7-7.7); Neutrophil % 71.6 % (47-70); Platelet Count 216 K/mm3 (150-450); RBC Distribution Width CV 12.3 % (11.6-14.6); RBC Distribution Width SD 37.3 fl (35.1-43.9); Red Blood Count 4.33 M/mm3 (4.2-5.4); White Blood Count 6.5 K/mm3 (4.4-11.0)
[2024-04-17 12:20] LABS: Hemoglobin A1c 4.7 % (3.8-5.6)
[2024-04-17 12:40] LABS: HIV - WCH Non-Reactive (Nonreactive); Hepatitis B Surface Antigen Non-Reactive (Nonreactive); Hepatitis C Antibody Non-Reactive (Nonreactive); Rubella IgG Reactive (Nonreactive); Syphilis Antibodies Non-reactive
== END | disposition home or self-care (01) ==
LOC: LAB 11:08
PROVIDERS: PCP Family Medicine; Referring Provider Advanced Practice Midwife; Visit Provider Advanced Practice Midwife
DX: Z34.01 Encounter for supervision of normal first pregnancy, first trimester (principal); Z3A.00 Weeks of gestation of pregnancy not specified
CPT/HCPCS: 36415; 83036; 85025; 86703; 86762; 86780; 86803; 86850; 86900; 86901; 87340

== ENCOUNTER → 2024-06-03 | Outpatient (CLI) | payer OTHER, SELFPAY | END | disposition home or self-care (01) | LOC: LAB 13:42 | PROVIDERS: PCP Family Medicine; Referring Provider Nurse Practitioner Women's Health; Visit Provider Nurse Practitioner Women's Health | DX: Z34.82 Encounter for supervision of other normal pregnancy, second trimester (principal); Z3A.00 Weeks of gestation of pregnancy not specified | CPT/HCPCS: 36415; 86787 ==

== ENCOUNTER → 2024-06-30 | Outpatient (CLI) | payer OTHER, SELFPAY ==
[2024-06-30 09:25] LABS: Absolute Lymphocyte Count 1.21 X10^3/uL (0.83-4.51); Absolute Neutrophil Count 6.2 X10^3/uL (2.0-7.7); Basophil# 0.02 X10^3/uL; Basophil% 0.3 % (0-1); Eosinophil# 0.12 X10^3/uL; Eosinophils% 1.5 % (0-5); Hematocrit 31.6 % (37-47); Hemoglobin 10.9 g/dL (12.0-15.0); Lymphocyte # 1.21 X10^3/ul (0.83-4.51); Lymphocyte % 15.2 % (19-41); Mean Corp Hgb Conc 34.5 g/dL (32-36); Mean Corpuscular Hgb 29.5 pg (27.0-32.0); Mean Corpuscular Volume 85.4 fL (81-99); Monocyte# 0.39 X10^3/uL; Monocyte% 4.9 % (0-10); NRBC Flagged by Analyzer 0 % (0-5); Neutrophil # 6.19 X10^3/uL (2.7-7.7); Neutrophil % 77.8 % (47-70); Platelet Count 194 K/mm3 (150-450); RBC Distribution Width CV 13.4 % (11.6-14.6); RBC Distribution Width SD 41.8 fl (35.1-43.9)
[2024-06-30 09:47] LABS: Protein, Urine (Random) 70.1 mg/dL (<11.9); Protein:Creat Ratio 235 mg/g CRE (0-200)
[2024-06-30 09:47] LABS: ALB/GLOB Ratio 0.9 RATIO (0.9-2.4); AST(SGOT) 6 U/L (15-37); Alanine Aminotransfer ALT/SGPT 12 U/L (13-56); Albumin, Serum 3.1 g/dL (3.2-5.0); Alkaline Phosphatase 76 U/L (45-117); Anion Gap 4 (5-15); BUN 7 mg/dL (7-18); BUN/Creat Ratio 13.5 RATIO (10-20); Chloride 109 mmol/L (98-107); Creatinine, Serum 0.52 mg/dL (0.55-1.02); EST Glomerular Filtration Rate 151 mL/min (>60); Est Glom Filt Rate - Afr Amer 182 mL/min (>60); Globulin 3.5 g/dL (2.2-4.2); Glucose 99 mg/dL (74-106); Potassium 3.7 mmol/L (3.5-5.1); Protein, Total 6.6 g/dL (6.4-8.2); Sodium Level 138 mmol/L (136-145); Total Bilirubin < 0.10 mg/dL (0.20-1.00)
== END | disposition home or self-care (01) ==
LOC: BWCLAB 08:58
PROVIDERS: PCP Family Medicine; Referring Provider Nurse Practitioner Women's Health; Visit Provider Nurse Practitioner Women's Health
DX: R80.9 Proteinuria, unspecified (principal)
CPT/HCPCS: 36415; 80053; 82570; 84156; 85025

== ENCOUNTER → 2024-08-17 | Outpatient (CLI) | payer OTHER, SELFPAY ==
[2024-08-17 16:35] LABS: Absolute Lymphocyte Count 1.55 X10^3/uL (0.83-4.51); Absolute Neutrophil Count 7.6 X10^3/uL (2.0-7.7); Basophil# 0.02 X10^3/uL; Basophil% 0.2 % (0-1); Eosinophil# 0.15 X10^3/uL; Eosinophils% 1.5 % (0-5); Hematocrit 31.4 % (37-47); Hemoglobin 10.6 g/dL (12.0-15.0); Lymphocyte # 1.55 X10^3/ul (0.83-4.51); Lymphocyte % 15.8 % (19-41); Mean Corp Hgb Conc 33.8 g/dL (32-36); Mean Corpuscular Hgb 29.6 pg (27.0-32.0); Mean Corpuscular Volume 87.7 fL (81-99); Monocyte# 0.48 X10^3/uL; Monocyte% 4.9 % (0-10); NRBC Flagged by Analyzer 0 % (0-5); Neutrophil # 7.57 X10^3/uL (2.7-7.7); Neutrophil % 77.1 % (47-70); Platelet Count 213 K/mm3 (150-450); RBC Distribution Width CV 13.2 % (11.6-14.6); Red Blood Count 3.58 M/mm3 (4.2-5.4); White Blood Count 9.8 K/mm3 (4.4-11.0)
[2024-08-17 16:44] LABS: Glucose Challenge Gest 1H 50g 161 mg/dL (70-140)
[2024-08-17 17:21] LABS: HIV - WCH Non-Reactive (Nonreactive); Syphilis Antibodies Non-reactive
== END | disposition home or self-care (01) ==
LOC: BWCLAB 13:41
PROVIDERS: PCP Family Medicine; Referring Provider Obstetrics & Gynecology; Visit Provider Obstetrics & Gynecology
DX: Z34.82 Encounter for supervision of other normal pregnancy, second trimester (principal); Z3A.00 Weeks of gestation of pregnancy not specified
CPT/HCPCS: 36415; 82950; 85025; 86703; 86780

== ENCOUNTER → 2024-08-21 | Outpatient (CLI) | payer OTHER, SELFPAY ==
[2024-08-21 10:27] LABS: Bedside Glucose 89 mg/dL (74-106)
[2024-08-21 10:54] LABS: Glucose GTT-Gestation. Fasting 93 mg/dL (<105)
[2024-08-21 11:53] LABS: Glucose GTT-Gestational 1 Hr 210 mg/dL (<190)
[2024-08-21 13:07] LABS: Glucose GTT-Gestational 2 Hr 101 mg/dL (<165)
[2024-08-21 13:59] LABS: Glucose GTT-Gestational 3 Hr 73 L (<145)
== END | disposition home or self-care (01) ==
LOC: LAB 09:47
PROVIDERS: PCP Family Medicine; Referring Provider Nurse Practitioner Women's Health; Visit Provider Nurse Practitioner Women's Health
DX: O99.810 Abnormal glucose complicating pregnancy (principal); Z3A.00 Weeks of gestation of pregnancy not specified
CPT/HCPCS: 36415; 82951; 82952; 82962

== ENCOUNTER → 2024-08-31 | Outpatient (CLI) | payer OTHER, SELFPAY ==
[2024-08-31 17:23] LABS: Protein, Urine (Random) 24.1 mg/dL (<11.9); Protein:Creat Ratio 166 mg/g CRE (0-200)
== END | disposition home or self-care (01) ==
LOC: LABSPEC 16:13
PROVIDERS: PCP Family Medicine; Referring Provider Advanced Practice Midwife; Visit Provider Advanced Practice Midwife
DX: O12.12 Gestational proteinuria, second trimester (principal); Z3A.00 Weeks of gestation of pregnancy not specified
CPT/HCPCS: 82570; 84156

== ENCOUNTER → 2024-10-15 | Outpatient (CLI) | payer OTHER, SELFPAY | END | disposition home or self-care (01) | LOC: LABSPEC 16:12 | PROVIDERS: PCP Family Medicine; Referring Provider Advanced Practice Midwife; Visit Provider Advanced Practice Midwife | DX: Z34.83 Encounter for supervision of other normal pregnancy, third trimester (principal) | CPT/HCPCS: 87081 ==

== ENCOUNTER 2024-11-10 04:06 | Inpatient (IN) | payer OTHER, SELFPAY ==
[2024-11-10] VITALS (35 sets, daily range): BP systolic 107–129; BP diastolic 54–77; PULSE 73–99; RESP 14–18; TEMP 36.2–37.4; O2SAT 91–100; BMI 37.7
[2024-11-10] MEDS: Lactated Ringers 1,000 ML 999 ML IV (04:20)
[2024-11-10] MEDS: Oxytocin 15 Units/NS 250ml 15 UNITS/250 ML IV.SOLN 334 UNITS IV (04:48)
[2024-11-10] MEDS: Oxytocin 15 Units/NS 250ml 15 UNITS/250 ML IV.SOLN 83 UNITS IV (05:18)
[2024-11-10 05:26] LABS: Syphilis Antibodies Nonreactive (Nonreactive)
--- NOTE | 2024-11-10 05:31 | HP.PCM.OB_ITS ---
HPI - General General Date of Admission: 11/10/24 HPI Narrative AASHISH MTZ, is a 29 F who presents in active labor delivered precipitously presented at 8 cm. Maternal Data Information LUX Calculator Estimated Delivery Date Method Current WG Current Estimate 11/07/24 LMP (Certain) 40w 3d Other Estimates 11/08/24 Ultrasound #1 40w 2d PFSH PFSH Medical History bleeding normal course (spontaneous vaginal delivery) Home Medications ?Medication ?Instructions ?Recorded ?Last Taken ?Type famotidine 20 mg tablet (Pepcid AC) 20 mg PO BID 07/27 Unknown History Allergy/AdvReac Type Severity Reaction Status Date / Time No Known Allergies Allergy Verified 11/09/24 13:54 Social History adopted: No household members: spouse and children number of children: 1 current occupational status: unemployed current occupation: [employer] current occupational exposures/hazards: No pets and animals: Yes pets and animals: dog(s) history of recent travel: No sexually active: Yes Smoking Status: Never smoker alcohol intake: never substance use type: does not use well-balanced diet: daily or most days caffeine: No eating out: 1-3 times/week during the past year weight has: remained stable what type of physical activity do you participate in: none kathleen/adventism: None seatbelt use: always do you feel safe at home: Yes additional social history: [employer] History 2 Elective abortions Hx Para 1 Spontaneous abortions Hx # Term Pregnancies Ectopic pregnancies Hx # Pregnancies Multiple births # of living children 1 Past Pregnancies Del. Date Name GA/Weeks Outcome Route Bth Weight Gen Labor Lgth Anesthesia Del Locatn Provider FOB 12/03/22 Lorna 39 live - full term 7#8oz Female epidu ral [facility] Eligio Arango Visit Details Expected Delivery Route/Plan Labor Preferences- CB/BF classes: no labor support person: Nba labor intervention preferences: [] pain management options preferred: epidural cut cord/dad catch: no : yes PP control planned: discussed discussed possible routes of delivery and associated risks: [] special requests: [] Plans Covid status: [] Flu vaccine: given Tdap vaccine: given Rhogam: na LARC form signed: yes Problem list reviewed and updated with the most current plan of care details and appropriate orders placed. Relevant counseling for the gestational age provided. Continue routine care and follow up unless otherwise noted in visit notes/problem list details OB Flowsheet Initial Weight: 182 lb Date -?-?-?-?-?-?-?-?-?-?-?-?- EGA Weight BP Urine Prot -?-?-?-?-?-?-?-?-?--?-?-?- Glucose FHR FuHt Pres Dilation -?-?-?-?-?-?-?-?-?-?-?-?- Effaced St Visit Note 04/09/24 -?-?-?-?-?-?-?-?-?-?-?-?- 9w 5d 182 lb (+0 oz) 128/85 -?-?-?-?-?-?-?-?-?-?-?-?- 180 -?-?-?-?-?-?-?-?-?-?-?-?- KW- CRL cons wit h dates. accepts NIPT. 05/07/24 -?-?--?-?-?-?-?-?-?-?-?-?- 13w 5d 178 lb (-4 lb) 114/78 Negative -?-?-?-?-?-?-?-?-?-?-?-?- Negative 160 -?-?-?-?-?-?-?-?-?-?-?-?- SM- no vb crampi ng co nuasea 06/02/24 -?-?-?-?-?-?-?-?-?-?-?-?- 17w 3d 177 lb 2 oz (-4 lb 14 oz) 104/69 Negative -?-?-?-?-?-?-?-?-?-?-?-?- Negative 145 -?-?-?-?-?-?-?-?-?-?-?-?- -Denies VB, mis amping. Nausea improving. Flu vaccine 06/30/24 -?-?-?-?-?-?-?-?-?-?-?-?- 21w 3d 181 lb (-16 oz) 124/82 1+ -?-?-?-?-?-?-?-?-?-?-?-?- Negative 136 -?-?-?-?-?-?-?-?-?-?-?-?- MH-has been vomi ting this AM. Usually just mornings. Is overall doing better with N/V. No headaches, vision changes. Pre E labs. Discussed small fluid intake etc. No VB. Good FM 07/27/24 -?-?-?-?-?-?-?-?-?-?-?-?- 25w 2d 187 lb 2 oz (+5 lb 2 oz) 107/71 Negative -?-?-?-?-?-?-?-?-?-?-?-?- Negative 145 26 -?-?-?-?-?-?-?-?-?-?-?-?- JV- no lof, vagi nal bleeding, or cramping. gct next visit. 08/17/24 -?-?-?-?-?-?-?-?-?-?-?-?- 28w 2d 191 lb 8 oz (+9 lb 8 oz) 118/72 Negative -?-?-?-?-?-?-?-?-?-?-?-?- Negative 150 28 -?-?-?-?-?-?-?-?-?-?-?-?- MH-No vb, LOF. G ood FM. Larc, tdap, 28 wk labs pending. States blurred vision for a short minute or 2 yesterday. No headache. Reassured. 08/31/24 -?-?-?-?-?-?-?-?-?-?-?-?- 30w 2d 197 lb 8 oz (+15 lb 8 oz) 120/77 Trace -?-?-?-?-?-?-?-?-?-?-?-?- Negative 140 30 -?-?-?-?-?-?-?-?-?-?-?-?- KW- no vb/lof/ct x. good fm. repeat PC ratio. flying [place] weekend. 09/17/24 -?-?-?-?-?-?-?-?-?-?-?-?- 32w 5d 200 lb 2 oz (+18 lb 2 oz) 117/63 -?-?-?-?-?-?-?-?-?-?-?-?- 140 32 -?-?-?-?-?-?-?-?-?-?-?-?- SM- no vb lof go od fm no regualr ctx 09/28/24 -?-?-?-?-?-?-?-?-?-?-?-?- 34w 2d 201 lb 2 oz (+19 lb 2 oz) 109/75 Negative -?-?-?-?-?-?-?-?-?-?-?-?- Negative 135 34 -?-?-?-?-?-?-?-?-?-?-?-?- JV- patient is e xperiencing migraine with aura. She has had about 5 episodes this . will need to see pcp after delivery to discuss treatment options. run wrists under cold water when it starts, take a magnesium supplement + tylenol in meantime. 10/15/24 -?-?-?-?-?-?-?--?-?-?-?-?- 36w 5d 205 lb 6 oz (+23 lb 6 oz) 110/74 Negative -?-?-?-?-?-?-?-?-?-?-?-?- Negative 130 37 Cephalic 0 -?-?-?-?-?--?-?-?-?-?-?-?- KW- no vb/lof/ct x good fm. GBS today. 10/23/24 -?-?-?-?-?-?-?-?-?-?-?-?- 37w 6d 211 lb 4 oz (+29 lb 4 oz) 127/80 Negative -?-?-?-?-?-?-?-?-?-?-?-?- Negative 150 37.5 Cephalic 1 -?-?-?-?-?-?-?-?-?-?-?-?- 0 -4 JV- no lof , vaginal bleeding, or dec fm. labor precautions discussed. 10/29/24 -?-?-?-?-?-?-?-?-?-?-?-?- 38w 5d 210 lb 8 oz (+28 lb 8 oz) 128/77 Trace -?-?-?-?-?-?-?-?-?-?-?-?- Negative 150 38 Cephalic 3 -?-?-?-?-?-?-?-?-?-?-?-?- 50 -2 KW- no vb/ lof/reg ctx. good fm. labor precautions. 11/06/24 -?-?-?-?-?-?-?-?-?-?-?-?- 39w 6d 213 lb (+31 lb) 111/74 Negative -?-?-?-?-?-?-?-?-?-?-?-?- Negative 150 39 Cephalic 3 -?-?-?-?-?-?-?-?-?-?-?-?- 50 -2 LC- no ctx /lof/vb. good fm. membrane swept today. iol set up for 41 weeks 11/09/24 -?-?-?-?-?-?-?-?-?-?-?-?- 40w 2d 215 lb 2 oz (+33 lb 2 oz) 121/71 Negative -?-?-?-?-?-?-?-?-?-?-?-?- Negative 152 40 Cephalic 4 .5 -?-?-?-?-?-?-?-?-?-?-?-?- 80 -1 JV- no lof , vaginal bleeding, or dec fm. no complaints. IOL already set up. NST FHR Rate Baby A Baseline: 140 Variability:: Moderate Uterine Activity:: q3-5 ROS Constitutional Constitutional: Reports systems reviewed and no addt'l complaints, except as do cumented ENT HEENT: Reports systems reviewed and no addt'l complaints, except as documented Cardiovascular Cardiovascular: Reports systems reviewed and no addt'l complaints, except as documented Respiratory/Chest Respiratory/Chest: Reports systems reviewed and no addt'l complaints, except as documented Gastrointestinal Gastrointestinal: Reports systems reviewed and no addt'l complaints, except as documented and nausea; Denies abdominal pain Genitourinary Genitourinary: Reports systems reviewed and no addt'l complaints, except as documented, contractions Details: present and frequency (regular ) and movement Details: present Musculoskeletal Musculoskeletal: Reports systems reviewed and no addt'l complaints, except as documented Integumentary Integumentary: Reports as per HPI Neurologic Neurologic: Reports systems reviewed and no addt'l complaints, except as documented Endocrine Endocrinology: Reports systems reviewed and no addt'l complaints, except as documented Vital Signs Vital Signs Vital Signs: 11/10/24 04:50 11/10/24 04:50 11/10/24 04:50 Temperature Temperature Source Pulse Rate 82 Respiratory Rate Blood Pressure 117/66 BP Systolic 117 BP Diastolic 66 Pulse Ox 95 11/10/24 04:50 11/10/24 04:50 11/10/24 04:50 Temperature Temperature Source Temporal Pulse Rate Respiratory Rate 16 Blood Pressure BP Systolic BP Diastolic Pulse Ox 98 11/10/24 04:50 11/10/24 04:55 11/10/24 04:55 Temperature 97.7 F L Temperature Source Pulse Rate 87 Respiratory Rate Blood Pressure BP Systolic BP Diastolic Pulse Ox 100 11/10/24 05:00 11/10/24 05:00 11/10/24 05:05 Temperature Temperature Source Pulse Rate 86 Respiratory Rate Blood Pressure 126/68 H BP Systolic 126 BP Diastolic 68 Pulse Ox 100 11/10/24 05:05 11/10/24 05:05 11/10/24 05:05 Temperature Temperature Source Pulse Rate 93 90 Respiratory Rate Blood Pressure BP Systolic BP Diastolic Pulse Ox 100 11/10/24 05:05 11/10/24 05:05 11/10/24 05:05 Temperature 97.2 F L Temperature Source Temporal Pulse Rate Respiratory Rate 16 Blood Pressure BP Systolic BP Diastolic Pulse Ox 11/10/24 05:10 11/10/24 05:10 11/10/24 05:15 Temperature Temperature Source Pulse Rate 88 79 Respiratory Rate Blood Pressure BP Systolic BP Diastolic Pulse Ox 100 11/10/24 05:15 11/10/24 05:20 11/10/24 05:20 Temperature Temperature Source Pulse Rate 86 Respiratory Rate Blood Pressure BP Systolic BP Diastolic Pulse Ox 100 98 11/10/24 05:21 11/10/24 05:21 11/10/24 05:25 Temperature Temperature Source Pulse Rate 80 83 Respiratory Rate Blood Pressure 107/59 L BP Systolic 107 BP Diastolic 59 Pulse Ox 11/10/24 05:25 Temperature Temperature Source Pulse Rate Respiratory Rate Blood Pressure BP Systolic BP Diastolic Pulse Ox 100 Weight Weight: 213 lb Body Mass Index (BMI) 37.7 Physical Exam Const alert, oriented x3 and healthy appearing Constitutional Narrative: uncomfortable with contractions HEENT normocephalic and moist oral mucous membranes Head and Scalp: atraumatic Neck full ROM, no lymphadenopathy, supple and thyroid normal General: trachea midline Thyroid: thyroid normal Lymph Lymphatic: no lymphadenopathy noted Chest inspection of chest normal Resp normal respiratory effort Cardio regular rate GI soft to palpation and non-tender GI Narrative: gravid Inspection: gravid external exam normal Bimanual Exam - Vag & Uterus: uterus non-tender Manual OB Exam: estimated gestational size appropriate, presentation cephalic, dilated, effaced and station Extremity normal to inspection General Extremity: Negative for edema Skin no rashes or lesions noted Neuro deep tendon reflexes 2+ bilaterally Motor Exam: strength 5/5 throughout and clonus absent Psych mental status grossly normal Labs Labs Labs: Blood Type A POSITIVE Antibody Screen NEGATIVE Hct 31.4 % (37-47) L Hgb 10.6 g/dL (12.0-15.0) L Obstetrics Ultrasound Syphilis Total Ab Nonreactive (Nonreactive) VZV IgG Antibody Rubella IgG Antibody Reactive (Nonreactive) Hep Bs Antigen Non-Reactive (Nonreactive) Hepatitis C Antibody Non-Reactive (Nonreactive) Chlamydia DNA (SULLY) Negative (Negative) N.gonorrhoeae DNA (SULLY) Negative (Negative) HIV 1&2 Antibody Non-Reactive (Nonreactive) Glucose 1 Hr 50 gm 161 mg/dL (70-140) H Gest Glucose Tolerance MG/DL Assessment & Plan (1) Obesity affecting : COMMENT: nl hga1c healthy weight gain encouraged (2) Abnormal glucose affecting : COMMENT: nl 3 hr gtt (3) Supervision of normal : QUALIFIERS: Normal : other normal Trimester: third trimester Qualified Code(s): Z34.83 - Encounter for supervision of other normal , third trimester COMMENT: PRR, , LUX 11/07/24 Girl, THERESA Rothman, Nba (4) : QUALIFIERS: Weeks of gestation: 40 weeks Qualified Code(s): Z3A.40 - 40 weeks gestation of COMMENT: GBS neg, NIPT low risk (5) Vaginal delivery: COMMENT: SM in active labor precipitous delivery 40 girl Ejrilyn PLAN: Plan Admitted and precipitously delivered
--- NOTE | 2024-11-10 05:33 | EX.PCM.OBVAG ---
Assessment & Plan (1) Vaginal delivery: COMMENT: SM in active labor precipitous delivery 40 girl Jerilyn (2) Obesity affecting : COMMENT: nl hga1c healthy weight gain encouraged (3) Abnormal glucose affecting : COMMENT: nl 3 hr gtt (4) Supervision of normal : QUALIFIERS: Normal : other normal Trimester: third trimester Qualified Code(s): Z34.83 - Encounter for supervision of other normal , third trimester COMMENT: PRR, , LUX 11/07/24 Girl, THERESA Rothman, Nba (5) : QUALIFIERS: Weeks of gestation: 40 weeks Qualified Code(s): Z3A.40 - 40 weeks gestation of COMMENT: GBS neg, NIPT low risk Maternal Data Information LUX Calculator Estimated Delivery Date Method Current WG Current Estimate 11/07/24 LMP (Certain) 40w 3d Other Estimates 11/08/24 Ultrasound #1 40w 2d Vaginal Delivery Maternal Presentation Maternal Presentation: see assessment and plan Vaginal Delivery Information Procedure Performed: Spontaneous Vaginal Delivery Surgeon/Practitioner: Katherin Dietz Pre-Procedure Diagnosis: see assessment and plan Post-Procedure Diagnosis: same Findings Description of procedure: Patient began pushing and delivered the head in the ABDELRAHMAN presentation. The head was delivered atraumatically and a loose nuchal cord ?1 was identified and easily reduced over the 's head. The anterior and posterior shoulders delivered without complication followed by the rest of the infant and the infant was placed on the maternal abdomen. Delayed cord clamping was employed for approximately 60 seconds. Cord was clamped and cut and gentle traction was applied to the cord and the placenta delivered spontaneously immediately following it was noted to be intact with three-vessel cord. The perineum and vagina were inspected and noted to have no laceration. EBL was 300. Patient and infant tolerated delivery well. 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
--- NOTE | 2024-11-10 05:34 | DCINST_ITS ---
Discharge Instructions Diet Discharge Diet: No restrictions DC O2, CPAP, BIPAP needs Home O2 Discharge instructions: No Dressing / Incision Discharge Activity: Return to Normal Activity, May Not Drive (while taking narcotic pain medications.) and May Shower May resume sexual activity in: 4-6 weeks Dressing / Incision Call your doctor if your incision/area has: Continuous Slow Oozing, Sudden Increased Bleeding, Increased Pain/ Swelling, Increased Redness and Foul Smelling Discharge Follow Up Care Please Follow Up With: Katherin Dietz MD When: Call [phone] to make an appointment with your doctor in 6 weeks. If you had elevated blood pressure or 4th degree laceration, you will need to be seen in 2 weeks. Test Results: Test results from this visit will be discussed in further detail at your follow- up appointment, if applicable. Discharge Plan Admission Admit Date/Time: 11/10/24 04:06 Attending Provider: Katherin Dietz Primary Care Provider: Eleuterio Angeles Discharge Orders/Prescriptions Prescriptions: No Action famotidine [Pepcid AC] 20 mg tablet 20 mg PO BID Referrals / Follow Up: Eleuterio Angeles MD [Primary Care Provider] -
[2024-11-10] MEDS: Acetaminophen 650 MG/20 ML UDC 1000 MG PO ×3 (06:06→18:36)
[2024-11-10 06:36] LABS: Absolute Lymphocyte Count 2.02 X10^3/uL (0.83-4.51); Absolute Neutrophil Count 9.7 X10^3/uL (2.0-7.7); Basophil# 0.04 X10^3/uL; Basophil% 0.3 % (0-1); Eosinophil# 0.05 X10^3/uL; Eosinophils% 0.4 % (0-5); Hematocrit 34.8 % (37-47); Hemoglobin 12.2 g/dL (12.0-15.0); Lymphocyte # 2.02 X10^3/ul (0.83-4.51); Lymphocyte % 16.1 % (19-41); Mean Corp Hgb Conc 35.1 g/dL (32-36); Mean Corpuscular Hgb 29.2 pg (27.0-32.0); Mean Corpuscular Volume 83.3 fL (81-99); Mean Platelet Vol. 10.2 fl (6.2-12.0); Monocyte# 0.67 X10^3/uL; Monocyte% 5.3 % (0-10); NRBC Flagged by Analyzer 0 % (0-5); Neutrophil # 9.72 X10^3/uL (2.7-7.7); Neutrophil % 77.3 % (47-70); Platelet Count 192 K/mm3 (150-450); RBC Distribution Width CV 13.3 % (11.6-14.6); RBC Distribution Width SD 40.4 fl (35.1-43.9); Red Blood Count 4.18 M/mm3 (4.2-5.4); White Blood Count 12.6 K/mm3 (4.4-11.0)
[2024-11-11] MEDS: Acetaminophen 650 MG/20 ML UDC 1000 MG PO (00:40)
[2024-11-11 00:43] VITALS: BP 125/88; PULSE 98; RESP 16; TEMP 36.3; O2SAT 98
--- NOTE | 2024-11-11 07:17 | PCM.PN.OB ---
Subjective Subjective Patient doing well without complaints. Tolerating PO. Ambulating and voiding without difficulty. feeding well. Denies chest pain, shortness of breath, calf pain/swelling, fevers, chills, lightheadedness. Objective Data Objective Data Vital Signs: Vital Signs Temp Pulse Resp BP Pulse Ox O2 Del Method 97.4 F L 98 16 125/88 H 98 Room Air 11/11/24 00:43 11/11/24 00:43 11/11/24 00:43 11/11/24 00:43 11/11/24 00:43 11/11/24 00:43 Oxygen Delivery Method Room Air Weight: 213 lb Body Mass Index (BMI) 37.7 Intake & Output: Intake and Output for Last 24 Hours 11/09/24 11/10/24 11/11/24 23:59 23:59 23:59 Intake Total 816.6 / 816.6 Output Total 1200 / 1200 Balance -383.4 / -383.4 Lab / Micro Data 11/10/24 04:20 ROS Constitutional Constitutional: Reports systems reviewed and no addt'l complaints, except as documented Cardiovascular Cardiovascular: Reports systems reviewed and no addt'l complaints, except as documented Respiratory/Chest Respiratory/Chest: Reports systems reviewed and no addt'l complaints, except as documented Gastrointestinal Gastrointestinal: Reports systems reviewed and no addt'l complaints, except as documented Physical Exam Const alert, oriented x3 and no apparent distress HEENT Head and Scalp: atraumatic Resp normal respiratory effort GI soft to palpation and non-tender Bimanual Exam - Vag & Uterus: uterus non-tender Uterus Palpation: uterus fundus firm (below Umbilicus) Assessment & Plan (1) Vaginal delivery: COMMENT: CRISS in active labor precipitous delivery 40 girl Jerilyn PLAN: Plan s/p PPD # 1 1. routine post delivery care 2. breast feeding- support given 3. rh positive 4. rubella immune
[2024-11-11 07:35] VITALS: BP 105/73; PULSE 77; RESP 15; TEMP 36.3; O2SAT 97
== END 2024-11-11 11:15 | disposition home or self-care (01) | DRG 807 ==
PROVIDERS: Admitting Provider Obstetrics & Gynecology; PCP Family Medicine; Visit Provider Obstetrics & Gynecology
DX: O62.3 Precipitate labor (principal); Z37.0 Single live birth; O69.81X0 Labor and delivery complicated by cord around neck, without compression, not applicable or unspecified; O99.214 Obesity complicating childbirth; Z3A.40 40 weeks gestation of pregnancy
CPT/HCPCS: 59025; 59050; 85025; 86780; 86850; 86900; 86901; 99221; G0378

== ENCOUNTER → 2024-12-22 | Outpatient (CLI) | payer OTHER, SELFPAY ==
[2024-12-25 11:46] LABS: HPV Reflexed? NOT INDICATED
== END | disposition home or self-care (01) ==
LOC: LABSPEC 16:23
PROVIDERS: PCP Family Medicine; Referring Provider Nurse Practitioner Women's Health; Visit Provider Nurse Practitioner Women's Health
DX: Z12.4 Encounter for screening for malignant neoplasm of cervix (principal)
CPT/HCPCS: 88175; G0145